=== PATIENT | male | born 1965 | race Two or more races ===

== ENCOUNTER → 2021-04-17 | Emergency (ER) | payer OTHER ==
[~2021-04-17] VITALS: Ht 175.3 cm; Wt 77.1 kg
== END | disposition home or self-care (01) ==
LOC: ER 13:20
DX: S51.822A Laceration with foreign body of left forearm, initial encounter (principal); W45.8XXA Other foreign body or object entering through skin, initial encounter; Y93.89 Activity, other specified; Y92.69 Other specified industrial and construction area as the place of occurrence of the external cause; Y99.8 Other external cause status